=== PATIENT | male | born 1975 | race Caucasian/White ===

== ENCOUNTER 2018-04-30 10:26 | Emergency (ER) | payer BC ==
--- NOTE | 2018-04-30 11:14 | RAD ---
LEFT KNEE 4 VIEWS: Date: 04/30/18 HISTORY: Knee pain. COMPARISON: Knee radiograph dated 03/01/18. FINDINGS: There is mild medial compartment narrowing. Moderate medial and lateral patellofemoral compartment os teophytes. No significant joint effusion. There are some dystrophic calcifications along the distal patella tendon insertion. No acute fracture or malalignment. IMPRESSION: 1. Mild degenerative changes. 2. Some dystrophic calcifications along the distal patella tendon may be sequelae of patellar tendin osis or prior surgical repair. POS: [facility]
== END 2018-04-30 12:08 | disposition home or self-care (01) ==
LOC: ERS 10:26
DX: M25.562 Pain in left knee (principal); I10 Essential (primary) hypertension; E78.5 Hyperlipidemia, unspecified; Z79.899 Other long term (current) drug therapy

== ENCOUNTER 2020-05-04 20:19 | Emergency (ER) | payer BC ==
--- NOTE | 2020-05-04 21:00 | RAD ---
XR Knee Rt 4 View STANDARD HISTORY: Right knee pain FINDINGS: No fracture or dislocation is identified. No significant osteophytosis or joint effusion is seen.
== END 2020-05-04 21:21 | disposition home or self-care (01) ==
LOC: ERS 20:19
DX: M17.11 Unilateral primary osteoarthritis, right knee (principal); E78.5 Hyperlipidemia, unspecified; I10 Essential (primary) hypertension; Z79.899 Other long term (current) drug therapy